=== PATIENT | male | born 1960 | race Caucasian/White ===

== ENCOUNTER → 2018-01-21 | Outpatient (CLI) | payer BC, OTHER | LOC: BMCIMAGING 07:22 | PROVIDERS: ATTEND Internal Medicine Gastroenterology | DX: K76.0 Fatty (change of) liver, not elsewhere classified (principal) ==

== ENCOUNTER 2018-03-23 12:56 | Inpatient (IN) | payer OTHER ==
--- NOTE | 2018-03-23 13:58 | EDPHY ---
H & P Smoking Status: Never smoked Time Seen by Provider: 03/23/18 13:39 HPI/ROS: CHIEF COMPLAINT: Right foot and ankle pain HISTORY OF PRESENT ILLNESS: 57-year-old male arrives via private vehicle complaining of acute right foot and ankle pain. He was climbing down his ladder , is foot slipped and twisted. He is complaining of pain to the forefoot as well as a new puncture wound and bleeding to the plantar aspect of the 5th MTP location. No puncture wound through shoe. Tetanus is up-to-date. Last food oral intake 10:00 a.m. Today PRIMARY CARE PROVIDER: REVIEW OF SYSTEMS: A ten point review of systems was performed and is negative with the exception of the items mentioned in the HPI PAST MEDICAL/SURGICAL HISTORY: no anticoagulant use, no relevant medical/ surgical history SOCIAL HISTORY: denies alcohol use at time of incident PHYSICAL EXAM 1) GENERAL: Well-developed, well-nourished, alert and oriented. Appears to be in no acute distress. Answering questions appropriately. 2) HEAD: Normocephalic, atraumatic 3) HEENT: Pupils equal, round, reactive to light bilaterally. Negative Horners. Nasopharynx, oropharynx, clear. No deformity or angulation of nose. No septal hematoma. No rhinorrhea. No oral trauma.. 4) NECK: No cervical collar is on. Posterior cervical spine is nontender, no stepoff, no effusion. Full range of motion which does not elicit any midline cervical spine pain, no posterior midline tenderness, no step-off. 5) LUNGS: Clear to auscultation bilaterally, no wheezes, no rhonchi, no retractions. No obvious signs of trauma. No chest wall pain. No flaring, no grunting. Moving symmetrically. No crepitus. 6) HEART: [Regular rate and rhythm, 7) ABDOMEN: No guarding, no rebound, no focal tenderness, no peritoneal signs, no signs of trauma, no ecchymosis 8) MUSCULOSKELETAL: Right lower extremity: Diffuse soft tissue swelling to the midfoot. On the plantar aspect overlying the base of the 5th metatarsal a puncture wound is noted. DP PT pulses present and brisk. Tender to palpation medial ankle with no deformity or angulation. Capillary refill less than 2 sec 9) BACK: No midline vertebral tenderness, no fluctuance, no step-off, no obvious trauma, no visual or palpable abnormality. 10) SKIN: No laceration. No abrasion DIFFERENTIAL DIAGNOSIS: In no particular include but limited to open fracture, closed fracture, sprain, strain, compartment syndrome (Brianda Lucas Mary) Constitutional: Initial Vital Signs Temperature (C) 36 C 03/23/18 13:08 Heart Rate 65 03/23/18 13:08 Respiratory Rate 18 03/23/18 13:08 Blood Pressure 134/83 H 03/23/18 13:08 O2 Sat (%) 97 03/23/18 13:08 O2 Delivery Mode Room Air Allergies/Adverse Reactions: No Known Allergies Allergy (Unverified 03/23/18 13:07) Home Medications: Medication Instructions Recorded Acetaminophen/Dextromethorphan 10 ml PO HS PRN 03/23/18 [Daytime Cold & Cough Liquid] Fexofenadine HCl [Annabelle Allergy] 180 mg PO BID PRN 03/23/18 Rivaroxaban [Xarelto 10mg (*)] 10 mg PO DAILY 14 Days tab 03/24/18 oxyCODONE/APAP 5/325 [Percocet 1 tab PO Q4HRS PRN #28 tab 03/24/18 5/325 (*)] MDM/Departure - MDM Imaging Results: Images myself (Brianda Lucas) Medications Given: Discontinued Medications Acetaminophen (Tylenol) 650 mg PO Q6HRS TRE Stop: 09/19/18 17:59 Last Admin: 03/24/18 13:28 Dose: 650 mg Bupivacaine HCl/Epinephrine Bitart (Bupivacaine/Epi) Confirm Administered Dose 30 ml .ROUTE .STK-MED ONE Stop: 03/23/18 18:03 Last Admin: 03/23/18 23:32 Dose: Not Given Diphtheria/Tetanus/Acell Pertussis (Boostrix) 0.5 ml IM .ONCE ONE Stop: 03/23/18 14:30 Last Admin: 03/23/18 14:37 Dose: 0.5 ml Famotidine (Pepcid) 20 mg PO BID TRE Stop: 09/19/18 20:59 Last Admin: 01/02/19 10:13 Dose: 20 mg Hydromorphone HCl (Dilaudid) 1 mg IVP EDNOW ONE Stop: 03/23/18 14:31 Last Admin: 03/23/18 14:37 Dose: 1 mg Cefazolin Sodium/Dextrose (Ancef 1 Gm (Premix)) 50 mls @ 200 mls/hr IV EDNOW ONE PRN Reason: Protocol Stop: 03/23/18 14:43 Last Admin: 03/23/18 14:39 Dose: 50 mls Sodium Chloride (Ns) 1,000 mls @ 50 mls/hr IV CONT TRE Stop: 09/19/18 15:59 Last Admin: 03/23/18 22:11 Dose: 1,000 mls Cefazolin Sodium/Dextrose (Ancef) 100 mls @ 200 mls/hr IV Q8HRS TRE PRN Reason: Protocol Stop: 03/24/18 06:29 Last Admin: 03/24/18 06:05 Dose: 100 mls Cefazolin Sodium/Dextrose (Ancef 1 Gm (Premix)) 50 mls @ 200 mls/hr IV ONCALL ONE Stop: 03/23/18 18:14 Last Admin: 03/23/18 17:41 Dose: 50 mls Lactated Ringer's (Lr) 1,000 mls @ 0 mls/hr IV ONCE ONE PRN Reason: KVO Stop: 03/23/18 17:28 Last Admin: 03/23/18 23:33 Dose: Not Given Midazolam HCl (Versed) 2 mg IVP ONCALL ONE Stop: 03/23/18 18:17 Last Admin: 03/23/18 18:00 Dose: 2 mg Ondansetron HCl (Zofran) 4 mg IVP EDNOW ONE Stop: 03/23/18 14:31 Last Admin: 03/23/18 14:37 Dose: 4 mg Oxycodone HCl (Oxycodone Ir) 5 - 10 mg PO Q3HRS PRN PRN Reason: Breakthrough pain Stop: 04/02/18 17:10 Last Admin: 03/24/18 04:20 Dose: 5 mg ED Course/Re-evaluation: The patient was evaluated and managed by the physician's captain's assistant. My cosignature indicates that I reviewed the chart and I agree with the findings and plan of care as documented. I am the secondary supervising physician. ( Vilma Sharma) 3:06 p.m. consultation with on-call orthopedics PA who will consult Dr. Flynn. Patient remains NPO since 10:00 p.m. with a type 1 open fracture 5th metatarsal (Brianda Lucas) - Depart Disposition: [facility] Acute Condition: Fair
[2018-03-23] MEDS ORDERED: TDAP ADULT 0.5 ML INJ (BOOSTRIX) IM ONE (14:29)
[2018-03-23] MEDS ORDERED: ONDANSETRON 4 MG/2 ML VIAL IVP ONE (14:30)
[2018-03-23] MEDS ORDERED: HYDROmorphONE/DILAUDID 1 MG/ML INJ IVP ONE (14:30)
[2018-03-23 15:15] LABS: PLATELET COUNT 202 10^3/uL (150-400)
[2018-03-23 15:23] LABS: INR 0.98 (0.83-1.16); PROTIME(PATIENT) 13.2 SEC (12.0-15.0)
[2018-03-23] MEDS ORDERED: ceFAZolin 2 GM/DEXTROSE 100 ML IV ONE (15:56)
[2018-03-23] MEDS ORDERED: NS 1,000 ML IV SCH (16:00)
--- NOTE | 2018-03-23 16:14 | PDCONSULT ---
<AdrianaKecia S - Last Filed: 03/23/18 16:13> Golf Ball Molder Note: Patient's H/P was reviewed and completed. No change in patient condition since H /P was dictated. Patient seen/examined in conjunction with Dr. Flynn. <Marino Flynn R - Last Filed: 03/23/18 16:38> Golf Ball Molder Note: 57M s/p fall from ladder 4-5 ft while putting [employer] decorations away, describing full impact on his R forefoot at approximately 12:30pm today. Plain XRs reveal fractures of 2-5 R MTs, with significant 5th MT displacement. On exam there is a punctate wound at the level of 5th MT displaced, oblique fracture, concerning for open fracture. NPO since 10am. ER has confirmed tetanus UTD, and they appropriately and rapidly provided IV cefazolin after confirming wound at level of fracture site. We will proceed with urgent surgical I&D with ORIF and perc IF for his multiple metatarsal fractures. Informed consent obtained and placed in his chart. See full consult dictation for complete information.
--- NOTE | 2018-03-23 16:48 | GCON ---
DATE OF CONSULTATION: 03/23/2018 HPI: Patient is a pleasant 57-year-old right-hand dominant male who presents with right foot and ankle pain following an injury today, 03/23/2018 at approximately 12:30pm, when he was climbing down his ladder and the ladder collapsed at about the fourth rung, and he landed all his weight to his right foot and ankle. He immediately experienced pain and swelling and has now a new puncture wound over the anterolateral aspect of the foot. There was no puncture wound through the shoe. His tetanus is up to date at this time. He denies any abnormal numbness or tingling, cramping in his calves or ankles at this time. Denies worsening change in distal range of motion or strength. N.p.o. status: At 10 a.m. today, he had awad and eggs. Patient did receive 1g IV Ancef upon presentation to the ED, and was confirmed to have UTD tetanus. 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 PAST SURGICAL HISTORY: Pertinent for right wrist ORIF 50 years ago, left tibia ORIF 15 years ago. There were no problems with bleeding or anesthesia during that time. SOCIAL HISTORY: Patient is . He is able to make his own medical decisions. He denies any alcohol, drug use, or tobacco use at this time. FAMILY HISTORY: Denies h/o blood clots, bleeding disorders, CVD, cancer. REVIEW OF SYSTEMS: Otherwise, 10-point review of systems is negative except for as stated above. ALLERGIES: No known drug allergies. MEDICATIONS: Denies any medications. PHYSICAL EXAM: GENERAL: Patient is alert and oriented, able to respond appropriately to questions, in no acute distress. HEENT: Normocephalic, atraumatic. EOMs intact. Moist buccal mucosa. Patent nares. Hearing intact. NECK: No lymphadenopathy. Full AROM. NTTP. Negative Lhermitte. Negative Spurling. SPINE: NTTP throughout. Negative pelvic squeeze test. CV: Nonlabored breathing. No diaphoresis. MUSCULOSKELETAL: Focalized exam of bilateral lower extremities, there is 2+ nonpitting edema to his right foot with ecchymosis noted, and 1-2 mm punctate wound located over the plantar aspect of the midfoot, at the level of the 5th metatarsal fracture. He is tender to palpation over this area. It is minimally bleeding at this time, with fat droplets noted. Otherwise, no abnormal bleeding, oozing, discharge, lacerations noted. TTP over right ATFL and CFL. Able to wiggle toes without difficulty. AROM of right ankle: neutral to 5 degrees secondary to pain and swelling to patient. Negative syndesmotic squeeze test b/l. Bilateral calves are soft and supple and NTTP B/L with negative Homans. DNVI B/L with no focal deficits noted. All compartments soft with negative b/l passive stretch test and no increased pain with toe wiggle. SKIN: No other lacerations or lesions noted. NEURO: Alert, oriented. Able to respond appropriately to questions and command. Secondary survey is negative except for as stated above. PSYCH: A+Ox3, appropriate mood and affect. X-RAYS: Three views of right ankle show no fractures, malalignments, or deformities; mortise intact. Three views of patient's right foot are notable for nondisplaced fractures to the base of the 2nd, proximal shafts of 3rd and 4th metatarsals, and a displaced, oblique midshaft fracture to the 5th metatarsal with comminution. No other fractures, malalignments, or deformities are seen. ASSESSMENT: Right foot nondisplaced fractures to the 2nd, 3rd, and 4th metatarsals, as well as Grade I open, displaced, oblique fracture the 5th metatarsal. PLAN: At this time, patient's physical exam findings and x-rays were explained at length. Due to the open nature of the fracture, we have recommended urgent I &D/ORIF of the right foot. Informed consent was obtained by Dr. Marino Flynn. Patient is to be made n.p.o. and continue n.p.o. until after surgery. NWB to the affected extremity at this time and post-operatively. Maintain elevation of the extremity above the level of the heart. DVT prophylaxis: knee high TANISHA hose. SCDs have been ordered; will place him on Xarelto POD #1 for a total of 14 days post-operatively. Incentive spirometry recommended. PT/OT has been consulted; appreciate their recommendations. Additionally, we will place him on prophylactic antibiotics at this time. We will schedule him for surgery at the earliest convenience. Patient was advised to watch for any worsening pain, abnormal numbness or tingling, worsening change in heat or color of the extremity, abnormal bleeding , oozing, discharge, and to seek immediate medical attention if seen. He understands and agrees with this course of action. We will admit him at this time and appreciate the opportunity to assist in the care of this patient. Patient was seen and examined in conjunction with Dr. Flynn. /[id number]/MODL MTDD
[2018-03-23] MEDS ORDERED: ONDANSETRON DISINTEGRATING 4 MG TAB PO PRN (17:11)
[2018-03-23] MEDS ORDERED: diphenhydrAMINE 25 MG CAP PO PRN (17:11)
[2018-03-23] MEDS ORDERED: PROMETHAZINE HCL 25 MG/ML INJ IVP PRN ×2 (17:11→19:13)
[2018-03-23] MEDS ORDERED: TEMAZEPAM 15 MG CAP PO PRN (17:11)
[2018-03-23] MEDS ORDERED: METOCLOPRAMIDE 10 MG/2 ML VIAL IVP PRN ×2 (17:11→19:13)
[2018-03-23] MEDS ORDERED: DIPHENOXYLATE/ATROPINE LOMOTIL 1 TAB PO PRN (17:11)
[2018-03-23] MEDS ORDERED: LR 1,000 ML IV SCH (17:11)
[2018-03-23] MEDS ORDERED: PROMETHAZINE HCL 25 MG SUPPR PR PRN (17:11)
[2018-03-23] MEDS ORDERED: ONDANSETRON 4 MG/2 ML VIAL IVP PRN ×2 (17:11→19:13)
[2018-03-23] MEDS ORDERED: CEFAZOLIN 1 GM/DEXTROSE/50 ML BAG IV ONE (17:21)
[2018-03-23] MEDS ORDERED: LR 1,000 ML IV ONE (17:27)
[2018-03-23] MEDS ORDERED: MIDAZOLAM 2 MG/2 ML VIAL ONE (17:52)
[2018-03-23] MEDS ORDERED: fentaNYL 100 MCG/2 ML INJ ONE ×3 (17:54→19:41)
[2018-03-23] MEDS ORDERED: PROPOFOL 200 MG/20 ML VIAL ONE ×2 (17:54→18:45)
[2018-03-23] MEDS ORDERED: KETOROLAC 30 MG/1 ML SDV ONE (17:56)
[2018-03-23] MEDS ORDERED: ONDANSETRON 4 MG/2 ML VIAL ONE (17:56)
[2018-03-23] MEDS ORDERED: DEXAMETHASONE 4 MG/ML VIAL ONE (17:56)
[2018-03-23] MEDS ORDERED: LIDOCAINE 2% 5 ML SDV ONE (17:58)
[2018-03-23] MEDS ORDERED: BUPIVACAINE/EPI 0.25% 30 ML SDV ONE (18:02)
[2018-03-23] MEDS ORDERED: MIDAZOLAM 2 MG/2 ML VIAL IVP ONE (18:16)
--- NOTE | 2018-03-23 18:17 | PDANEPAE ---
ANE History of Present Illness right foot open fx ANE Past Medical History - Cardiovascular History Hx Hypertension: No Hx Arrhythmias: No Hx Chest Pain: No Hx Coronary Artery / Peripheral Vascular Disease: No Hx CHF / Valvular Disease: No Hx Palpitations: No - Pulmonary History Hx COPD: No Hx Asthma/Reactive Airway Disease: No Hx Recent Upper Respiratory Infection: No Hx Oxygen in Use at Home: No Hx Sleep Apnea: No - Endocrine History Hx Diabetes: No ANE Review of Systems Review of systems is: negative Review of Systems: - Exercise capacity Exercise capacity: >=4 METS ANE Patient History - Allergies Allergies/Adverse Reactions: No Known Allergies Allergy (Unverified 03/23/18 13:07) - Home Medications Home medications: home medication list seen and reviewed Home Medications: Acetaminophen/Dextromethorphan [Daytime Cold & Cough Liquid] 10 ml PO HS PRN 04/10 [Last Taken 03/22/18 21:00] Fexofenadine HCl [Annabelle Allergy] 180 mg PO BID PRN 03/23/18 [Last Taken 09:30] - NPO status NPO Since - Liquids (Date): 03/23/18 NPO Since - Liquids (Time): 13:00 NPO Since - Solids (Date): 03/23/18 NPO Since - Solids (Time): 10:00 - Anes Hx Anes Hx: no prior problems - Smoking Hx Smoking Status: Never smoked ANE Labs/Vital Signs - Labs Result Diagrams: 03/23/18 14:12 03/23/18 14:12 - Vital Signs Blood Pressure: 139/91 Heart Rate: 78 Respiratory Rate: 16 O2 Sat (%): 94 Height: 185.42 cm Weight: 86.183 kg ANE Physical Exam - Airway Neck exam: FROM Mallampati Score: Class 1 Mouth exam: normal dental/mouth exam - Pulmonary Pulmonary: no respiratory distress - Cardiovascular Cardiovascular: regular rate and rhythym - ASA Status ASA Status: II, E ANE Anesthesia Plan Anesthesia Plan: GA w LMA Urgent/Emergent Case: Heike davenport completed preop but documented later for safe timely pt care
--- NOTE | 2018-03-23 18:18 | POSTANESTH ---
Post Anesthetic Evaluation Cardiovascular Status: Normal, Stable Respiratory Status: Normal, Stable, Requires Airway Assist Level of Consciousness/Mental Status: Can Participate in Eval, Moderately Sleepy Pain Control: Adequate, Prn Tx Ordered Nausea/Vomiting Control: Adequate, Prn Tx Ordered Complications Possibly Related to Anesthesia: None Noted
[2018-03-23] MEDS ORDERED: ROCURONIUM 50 MG/5 ML VIAL ONE (19:01)
[2018-03-23] MEDS ORDERED: ALBUTEROL 3 ML DEYVIAL IH PRN (19:13)
[2018-03-23] MEDS ORDERED: NALOXONE HCL 0.4 MG/ML INJ IVP PRN (19:13)
[2018-03-23] MEDS ORDERED: fentaNYL 100 MCG/2 ML INJ IVP PRN (19:13)
[2018-03-23] MEDS ORDERED: HYDROmorphONE/DILAUDID 2 MG/ML INJ IVP PRN (19:13)
[2018-03-23] MEDS ORDERED: oxyCODONE IR 5 MG TAB PO PRN (19:13)
[2018-03-23] MEDS ORDERED: ACETAMINOPHEN 500 MG TAB PO PRN (19:13)
[2018-03-23] MEDS ORDERED: HYDROCODONE/APAP 5/325 TAB PO PRN (19:13)
[2018-03-23] MEDS ORDERED: LR 500 ML IV PRN (19:13)
[2018-03-23] MEDS ORDERED: SUGAMMADEX SODIUM 200 MG/2 ML VIAL IVP ONE (19:25)
[2018-03-23] MEDS ORDERED: OXYCODONE/APAP 5/325 TAB PO PRN (20:13)
--- NOTE | 2018-03-23 20:17 | POSTOPPROG ---
Post Op Note Date of Operation: 03/23/18 Surgeon: Marino Flynn Culture Manager: LUCIANO Clark Anesthesia: GET(General Endotracheal) Pre-op Diagnosis: Right foot 2nd, 3rd, 4th and 5th open MT fracture Post-op Diagnosis: Right foot 2nd, 3rd, 4th and 5th open MT fracture Indication: Right foot 2nd, 3rd, 4th and 5th open MT fracture Procedure: Right foot ORIF and I/D Inf/Abcess present in the surg proc area at time of surgery?: No Depth: Deep Incisional (Fascial) EBL: 50-100 Complications: None.
--- NOTE | 2018-03-23 21:34 | GOP ---
DATE OF OPERATION: 03/23/2018 SURGEON: Marino Flynn MD PRECISION THREAD GRINDER OPERATOR: ANANTH Clark. ANESTHESIA: General. ANESTHESIOLOGIST: Dr. Poe. PREOPERATIVE DIAGNOSIS: Right foot trauma, with open fracture, including fractures of the 2nd, 3rd, 4th, and 5th metatarsals. POSTOPERATIVE DIAGNOSIS: Right 5th metatarsal open fracture, with closed fractures of the 4th, 3rd, and 2nd metatarsals. PROCEDURE PERFORMED: 1. Right foot incision, irrigation, drainage, and debridement of open 5th metatarsal fracture. 2. Right foot, 5th metatarsal, open reduction and internal fixation. 3. Right foot closed reduction and percutaneous pinning of the 4th and 3rd metatarsal fractures, closed treatment of 2nd metatarsal base fracture. FINDINGS: Displaced and open 5th metatarsal shaft fracture. Nondisplaced 2nd, 3rd, and 4th metatarsal fractures. There was no gross contamination on the surface level of the foot. With I and D at the open laceration plantar site, there was no obvious gross contamination within the deep soft tissues or around the bony ends. SPECIMENS: None. ESTIMATED BLOOD LOSS: Less than 10 mL. INDICATIONS: This is a 57-year-old male, who suffered a fall from a ladder earlier today. He was brought into the [facility] ER for trauma and inability to bear weight. He was found to have multiple foot fractures, as listed above. There was a plantar wound in the area of the displaced 5th metatarsal shaft fracture. Given the above, an open fracture was suspected. I was consulted as the on- call orthopedic surgeon, and the open fracture was confirmed. This was a grade 1 open fracture of the 5th metatarsal. Given the above, the risks, benefits, alternatives to surgery were provided, all questions answered, a signed witnessed informed consent was obtained and placed in the patient's chart, with plan to proceed with the above-listed procedures. Please note, the patient did have confirmation of tetanus up to date, as well as IV cefazolin 1 g once the ER team found the open wound on the plantar aspect of his foot. DESCRIPTION OF PROCEDURE: Marino was identified in the preoperative holding area and his right foot was designated as the operative site. He was confirmed in left lower extremity TANISHA hose and SCDs. He was treated with an additional 1 g of IV cefazolin per protocol. He was taken back to the operating room, placed supine on the OR table, and general anesthesia was obtained. Please note that this case was considered urgent and he was taken to the operating room 5-6 hours after the injury. The anesthesia team did request waiting until he was least n.p.o. for 8 hours. Left lower extremity was placed on a well-padded OR table with padding around the proximal fibula, heel, and ankle. Right lower extremity was wrapped proximally with cast padding and a nonsterile tourniquet, and then his right lower extremity was prepped and draped in the usual sterile manner, placed over a bone foam bump. The right hip was bumped. Mini C-arm was sterilely prepped and draped in the usual manner in order to use during surgery to confirm hardware placement, as well as fracture reduction. Initial focus was on the open fracture. Due to the plantar wound, this was opened proximally and distally by approximately 1 cm to 15 mm in each direction , in order to expose the area and debride any devitalized tissue. There was a stellate puncture wound on the plantar aspect of the foot and, therefore, this was excised with an elliptical-type incision. Once the skin edges were freshened and without any further stellate extension, a small mosquito clamp was used to gently spread the plantar fat. Multiple rounds of irrigation, followed by spreading and inspection, were performed to confirm no possible retained foreign bodies or other abnormal findings of contamination. Retractors were placed. A total of 6 L of sterile saline was flushed through the fracture site and open laceration region. Once the washout along the plantar aspect was completed, the standard approach laterally to the 5th metatarsal fracture was then performed. Using a 6 cm incision placed directly over the lateral aspect of the 5th metatarsal, a full- thickness dermal incision was made in the standard position. This was placed just at the junction of the glabrous skin and dorsal skin. A full-thickness dermal incision was made after exsanguination and the tourniquet was inflated to 250 mmHg. Careful dissection was taken down through the subcutaneous fat. The lateral plantar nerve was identified in the inferior aspect of the soft tissues, and this was retracted inferiorly with the adductor digiti minimi muscle belly. The lateral cortex of the 5th metatarsal was identified, and the fracture was palpated. Fracture hematoma was suction irrigated. Subperiosteal dissection was kept to a minimum, only at the level of the fracture site in order expose the fracture ends. Otherwise, the lateral aspect of the metatarsal was only freed of soft tissues for plate placement. All hematoma was suction irrigated. Additional irrigation was used in this approach in order to further copiously irrigate the fracture site. There was a free-floating area of bone, approximately 2 x 5 mm, that was removed from the wound, as it was devoid of any soft tissue attachments. Once all the soft tissues and hematoma were removed from the fracture site, an anatomic reduction was achieved with gentle traction, as well as a point-to- point reduction tenaculum. A dorsal-plantar oblique interfragmentary compression screw was then placed using standard AO technique in order to compress the fracture site, i.e., perpendicular to fracture since this was a relatively oblique-type fracture. Once this was in place, a 6-hole 2.4 mm plate from the foot modular Synthes set was used as a neutralization plate. This was placed along the lateral cortex of the metatarsal. It was fixated proximally and distally to the fracture site with a total of 6 bicortical screws. In each case, the screws were placed to the appropriate length, with good bicortical bite. The screws closest to the fracture site were oriented obliquely in order to not interfere with the inner fragmentary compression screw , as well as be placed outside the fracture site. Please note, the drill filings were captured during the surgery and packed into the small bone void from the comminution. Once the fixation was completed and all screws were tightened, images were taken and anatomic reduction, as well as appropriate plate placement, were confirmed. Once this was completed, the wound was further irrigated with sterile saline and then both of the open fracture wounds were closed in standard manner. The plantar wound was closed with multiple interrupted 3-0 nylon sutures. The lateral approach was closed in a deep dermal manner with 3-0 Monocryl sutures, and then with multiple interrupted 3-0 nylon horizontal mattress sutures. Once this portion of the case was completed, the tourniquet was dropped. Hemostasis was confirmed. A percutaneous internal fixation with 2 intramedullary K-wires was performed due to the multiple metatarsal fractures and trauma as listed above. In each case, a small percutaneous stab wound was placed just inferior to the digit and just distal to the metatarsophalangeal joint. In each case, the pin was placed by hand along the plantar aspect of the metatarsal head. The intramedullary canal was then entered, and the pin was advanced in a retrograde manner down the intramedullary canal, with passage just through the proximal aspect of the cortex of the metatarsal in order to achieve appropriate bony bite. Once these were placed to the appropriate depth, and confirmed to be in position within the intramedullary canal with orthogonal views, the final images were taken and printed with the C-arm. The pins were then bent back upon themselves and cut. Protective caps were placed over the ends of the pins. The small percutaneous wounds were cleansed with a saline-soaked sponge, and then the foot was dressed in the usual sterile manner. A short-leg splint was applied with stirrup. Once the splint was completed, the anesthesia service took over to wake the patient up. TOURNIQUET TIME: 57 minutes, at 250 mmHg. DRAINS: None. IMPLANTS: Synthes 2.4 mm modular plate, 6-hole, with a total of 6 screws. There was an additional 2.4 mm interfragmentary compression screw placed in a dorsal-plantar oblique manner for compression. K-wires 2.0 mm x2. COMPLICATIONS: None. DISPOSITION: The patient was extubated and transferred to the PACU in stable condition. He will be admitted and will receive 23 hours of antibiotics. Standard instructions have been provided with strict nonweightbearing, ice, and elevation above the heart. The patient will be observed closely for development of any other kind of associated syndrome, such as compartment syndrome. /[id number]/MODL MTDD
[2018-03-23] MEDS: ceFAZolin 2 GM/DEXTROSE 100 ML IV SCH (22:11)
[2018-03-23] MEDS: oxyCODONE IR 5 MG TAB PO PRN (22:12)
[2018-03-23] MEDS: FAMOTIDINE 20 MG TAB PO SCH (22:12)
[2018-03-23] MEDS: ACETAMINOPHEN 325 MG TAB PO SCH (23:32)
[2018-03-24] MEDS: ACETAMINOPHEN 325 MG TAB PO SCH ×3 (00:09→13:28)
[2018-03-24] MEDS: oxyCODONE IR 5 MG TAB PO PRN (04:20)
[2018-03-24] MEDS: ceFAZolin 2 GM/DEXTROSE 100 ML IV SCH (06:05)
--- NOTE | 2018-03-24 08:21 | PDMN ---
Medical Necessity Medical necessity: MCG: S490 foot fx: ORIF: A-1 day: INPT for urgent sgy of OPEN fx, mult injuries: OP: ORIF/ I/D, open 5th metatarsal, R foot closed reduction and pinning of 3,4 MT fxs., pt with fall from ladder. further monitoring IV abx needed
[2018-03-24] MEDS: FAMOTIDINE 20 MG TAB PO SCH (10:13)
--- NOTE | 2018-03-24 10:19 | ASMTCMCOM ---
CM Note CM Note Notes: Spoke with pt in the room. Pt lives independently with and was admitted for surgical I&D and fixation following fractures from falling off a ladder. PT is recommending [facility] and pt is agreeable to [facility]. [facility] has accepted. Pt to discharge today or tomorrow. CM to follow. Date Signed: 03/24/2018 10:18 AM Electronically Signed By:Pearl Iniguez
[2018-03-24 11:49] VITALS: BP 128/74
--- NOTE | 2018-03-24 12:52 | SOAPPROG ---
SOAP Progress Note Assessment/Plan: Assessment: s/p trauma: open right foot fracture; POD #1. Doing well, pain well controlled. Has been compliant in NWB Plan: NWB to RLE. Maintain splint to LUE. Splint in good position at this time. DVT Prophylaxis: Begin Xarelto POD #1 for 14 days post-op. Recommend TANISHA hose x 2weeks in conjunction with SCDs. IS. Pain control: Percocet 5/325 1-2 q6-8hr prn pain. Rx in chart. PT/OT: appreciate their reccs. NWB to RLE. Patient is ambulating with the use of a scooter and will be attempting to go home. Abx: Continue 24hr dosing of post-operative abx. RTC 10-12 days for repeat radiographs or prn additional questions/concerns which arise. Contact our office with questions/concerns: [phone] Dispo: Ok to D/C once cleared by floor criteria, has finished 24hr of antibiotics, cleared by PT/OT and CM. Appreciate their reccs. Advised patient and family to watch for worsening pain, change in ROM or strength, abnormal numbness/tingling, change in heat/color of extremities, cramping in his calves or ankles, fever, chills, cough, congestion, chest pain, SOB, dyspnea and to seek immediate medical attention if seen. Patient seen/examined in conjunction with Dr. Flynn. Subjective: Subjective: Able to respond appropriately to questions/commands. in room. Pain well controlled: 04/01, last had pain meds 8hrs ago. Eating normally, passing flatus. Denies change in heat/color of extremity, cough, congestion, chest pain or shortness of breath, worsening pain over time, abnormal numbness/tingling, worsening change in distal ROM or strength, cramping in his calves or ankles. Is in splint during my visit today and it is in good position. Objective: Vital Signs Temp Pulse Resp BP Pulse Ox 37.1 C 62 18 128/74 H 93 03/24/18 11:48 03/24/18 11:48 03/24/18 11:48 03/24/18 11:48 03/24/18 11:48 Laboratory Results 03/24/18 04:27 03/24/18 04:27 03/23/18 03/24/18 03/25/18 05:59 05:59 05:59 Intake Total 1410 Output Total 1115 Balance 295 PT 13.2 SEC (12.0-15.0) 03/23/18 14:12 INR 0.98 (0.83-1.16) 03/23/18 14:12 AO, NAD, C-spine collar and TLSO in place, non-labored breathing, no diaphoresis. Afebrile. MS: Bilateral lower extremities: Right LE in splint; no abnormal bleeding/oozing/ discharge, change in heat/color around extremity & splint. No erythema, edema, ecchymosis or calor otherwise noted. Able to wiggle toes without difficulty; negative passive stretch b/l. Is compliant in sling/splint. DNVI with no focal deficits noted. Brisk cap refill b/l. Left calf soft/supple and NTTP b/l with negative Homans with TANISHA hose present, SCDs on and pumping b/l. Radiographs: 2 views of right foot show fractures in good position/alignment with hardware in good position/alignment. Splint in place. Well reduced fractures seen at 2nd, 3rd and 4th MT. Plate and screws of 5th MT in good position/alignment. - Pending Discharge Pending Discharge Within 48 Hours: Yes Pending Discharge Date: 03/26/18 Pending Discharge Time: 11:00 ICD10 Worksheet Patient Problems: Problems Problem Status Onset Open fracture of right foot Acute - ICD10 Problem Qualifiers (1) Open fracture of right foot Qualifiers: Encounter type: subsequent encounter Fracture healing: with routine healing Qualified Code(s): S92.901D - Unspecified fracture of right foot, subsequent encounter for fracture with routine healing
--- NOTE | 2018-03-24 13:32 | ASMTDCNOTE ---
Case Management Discharge Discharge Order Complete? Answers: Yes Patient to Obtain Answers: via Family Medications Transportation Arranged Answers: Family/Friends Transport will Pick (Date 03/24/2018 12:00 AM & Time) Agency/Facility Transfer Answers: Yes Report Printed & Faxed to Receiving Agency Family Notified Answers: Yes Notes: by patient Discharge Comments Notes: Pt to discharge with support from [facility]. CM called [facility] to notifiy. RN given number for RN report. No further CM needs noted at this time. D/C Plan: [facility] Date Signed: 03/24/2018 01:32 PM Electronically Signed By:Pearl Iniguez
--- NOTE | 2018-03-24 13:37 | ASDISCHSUM ---
Discharge Information Plan Status:Home with Home Health Medically Cleared to Leave:03/23/2018 Discharge Date:03/23/2018 CM D/C Disposition:Home, Routine, Self-Care ADT D/C Disposition:Home, Routine, Self-Care Projected Discharge Date:03/24/2018 11:00 AM Transportation at D/C:Family Discharge Delay Reason: Follow-Up Date:03/24/2018 11:00 AM Discharge Slot: Final Diagnosis:Foot fractures Placement Information Referral Type:*Home Health Care Services Referral ID:[id number] Provider Name:[facility] Address 1:[address] Address 2: City:[place] Selection Factors: State:[place] Patient Contact Information Contact Name:CLAUDINE Relationship: Address:[address] [place] [address] Work Phone: City:[place] Alternate Phone: State/Zip Code:[place] [address] Email: Financial Information Financial Class:HMO and PPO Plans Primary Plan Desc:[facility] Primary Plan Number:[id number] Secondary Plan Desc: Secondary Plan Number: Assessment Information LACE LACE Length of stay for Answers: 1 day current admission Acuity / Level of Answers: Yes Care: Did the patient have an inpatient admission? # of Emergency department Answers: 1-2 visits in the last 6 months Score: 5 Date Signed: 03/24/2018 01:36 PM Electronically Signed By:Pearl Iniguez [facility] CM Progress Note CM Note CM Note Notes: Spoke with pt in the room. Pt lives independently with and was admitted for surgical I&D and fixation following fractures from falling off a ladder. PT is recommending [facility] and pt is agreeable to [facility]. [facility] has accepted. Pt to discharge today or tomorrow. CM to follow. Date Signed: 03/24/2018 10:18 AM Electronically Signed By:Pearl Iniguez Case Management Discharge Plan Note Case Management Discharge Discharge Order Complete? Answers: Yes Patient to Obtain Answers: via Family Medications Transportation Arranged Answers: Family/Friends Transport will Pick (Date 03/24/2018 12:00 AM & Time) Agency/Facility Transfer Answers: Yes Report Printed & Faxed to Receiving Agency Family Notified Answers: Yes Notes: by patient Discharge Comments Notes: Pt to discharge with support from [facility]. CM called [facility] to notifiy. RN given number for RN report. No further CM needs noted at this time. D/C Plan: [facility] Date Signed: 03/24/2018 01:32 PM Electronically Signed By:Pearl Iniguez Intervention Information
--- NOTE | 2018-03-24 16:23 | PDIAF ---
- Diagnosis Code Status: Full Code - Medication Management Additional Medication Instructions: Take Xarelto and Percocet as prescribed. Discharge Medications: electronically signed and located in the Home Medication List. PICC Care - Routine: N/A - Orders Services needed: Physical Therapy, Occupational Therapy Isolation Type: None Diet Recommendation: no restrictions on diet Diet Texture: Regular Texture Diet Munoz: Not applicable Tanisha Stockings Discontinue Date: 04/08/2017 Wound Care Instructions: Maintain splint and dry dressing. Sutures/Michie Site: Do not remove splint/dry dressing unless d/w our office first. Activity/Weight Bearing Restrictions: NWB to RLE. Additional Instructions: Regarding Right Lowet Extremity Fractures ( - [facility]) : 1. The patient is to continue no weight bearing of his right lower extremity. 2. The patient is to wear his postoperative splint until first post-operative appointment, and to cover this for showering purposes. 3. The patient is to use ice as needed for pain control, as well as any pain medication prescribed as necessary. New Rx given for Percocet 5/325; take 1-2 by mouth every 6 to 8 hours as needed for pain. 4. The patient is to watch for signs of infection at her surgical site, including but not limited to: significant increases in pain or swelling, redness which extends beyond his splint or significant increases in warmth or drainage, as well as constitutional symptoms such as fevers, chills, nausea or vomiting, cramping in his calves or ankles, cough, congestion, chest pain, difficulty breathing. He is to notify the office immediately if any of these occur. 5. DVT Prophylaxis: Continue TANISHA hose compression stockings for first 2 weeks post-operatively on the non-operative leg. Begin taking Xarelto 10mg, 1 daily, for the first 2 weeks post-operatively. Continue incentive spirometry exercises shown. 6. PT/OT: Continue recommendations per their instructions. 7. The patient is to Follow up in clinic with Dr. Flynn in 10-12 days after his surgery for repeat radiographs, or sooner as needed for additional questions /concerns which may arise. Please call our office at [phone] to schedule. - Follow Up Care Current Providers and Referrals: Ame Salgado MD [Primary Care Provider] - As per Instructions Marino Flynn MD [Medical Doctor] -
[2018-03-24] MEDS ORDERED: RIVAROXABAN 10 MG TAB PO SCH (20:00)
== END 2018-03-24 14:57 | disposition home health service (06) | DRG 504 ==
LOC: OBSVTOIN 15:47 → F3N 20:52
PROVIDERS: ADMIT Orthopaedic Surgery; ATTEND Orthopaedic Surgery
PROC: 0QSN04Z Reposition Right Metatarsal with Internal Fixation Device, Open Approach (ICD-10-PCS; principal; 2018-03-23 17:50)
PROC: 0QSN35Z Reposition Right Metatarsal with External Fixation Device, Percutaneous Approach (ICD-10-PCS; principal; 2018-03-23 17:50)
DX: S92.351B Displaced fracture of fifth metatarsal bone, right foot, initial encounter for open fracture (principal); G81.94 Hemiplegia, unspecified affecting left nondominant side; S92.324A Nondisplaced fracture of second metatarsal bone, right foot, initial encounter for closed fracture; S92.334A Nondisplaced fracture of third metatarsal bone, right foot, initial encounter for closed fracture; S92.344A Nondisplaced fracture of fourth metatarsal bone, right foot, initial encounter for closed fracture; W11.XXXA Fall on and from ladder, initial encounter; B91 Sequelae of poliomyelitis; Z80.9 Family history of malignant neoplasm, unspecified
CPT/HCPCS: 96374; 97116-GP; 97161-GP; 97165-GO; 97535-GO; C1713; J0690; J1100; J1170; J1885; J2250; J2405; J2704; J3010